=== PATIENT | male | born 1980 | race Caucasian/White ===

== ENCOUNTER → 2016-10-06 | Day surgery (SDC) | payer MEDICAID ==
[~2016-10-06] MED LIST: AUGM875T PO; BUPIVACAINE/EPINEPHRINE 0.25% PF 10 ML VIAL ONE; CYCL-36 PO; DICL75 PO; KETOROLAC TROMETHAMINE 30 MG/ML (IVP) VIAL IV PUSH ONE; LACTATED RINGER'S 1000 ML INJ 1,000 ML ONE; MEPERIDINE HCL 25 MG/ML VIAL ONE; METH4PAK PO; MIDAZOLAM HCL 2 MG/2 ML VIAL ONE; NAPR-576 PO; ONDANSETRON HCL 4 MG/2 ML VIAL IV PUSH ONE; PROPOFOL 100 MG/10 ML INJ IV ONE; ceFAZolin 2 GM PREMIX 50 ML ONE
--- NOTE | 2016-10-06 14:24 | TN ---
cc: KALIN JOSHI M.D. DATE OF SURGERY: 10/06/2016 PREOPERATIVE DIAGNOSIS 1. Symptomatic right inguinal hernia. 2. Possible recurrent left inguinal hernia. POSTOPERATIVE DIAGNOSIS 1. Symptomatic right inguinal hernia. 2. 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 3. Left small direct hernia with mesh plug appearing to be in the internal ring. PROCEDURE PERFORMED Laparoscopic bilateral inguinal hernia repair with mesh. SURGEON Kalin Joshi [employer] Raul Almazan, MS III ANESTHESIA General LMA. COMPLICATIONS None. INDICATION FOR PROCEDURE Mr. Castillo is a pleasant 35-year-old gentleman who was referred for a symptomatic left inguinal hernia. His history is significant for having a right inguinal hernia last year which was repaired with a mesh plug by Dr. Garner at [facility]. At that time he has also noted to have a small right inguinal hernia and Dr. Garner offered him elective repair at a later date. The patient was seen and evaluated in the office. He was having bilateral inguinal pain, worse on the right. He was concerned he might have another hernia back on the left side. I offered him laparoscopic exploration of both sides, possible removal of the mesh plug if it was easily accessible, and he was agreeable. DETAILS OF PROCEDURE The patient was identified, brought to the operating room and placed supine on the operating table. After adequate general anesthesia was achieved with an LMA, the anterior abdomen and groin were prepped and draped in standard surgical fashion. The infraumbilical space was anesthetized with 0.25% Marcaine. The infraumbilical incision was made. Dissection was carried down through subcutaneous tissue to the anterior rectus fascia. The anterior rectus fascia was then incised vertically off the midline.. the rectus muscle was then retracted laterally and the preperitoneal space was entered with blunt finger dissection. A blunt dissecting balloon was inserted and the preperitoneal space was inflated with 30 pumps of air under direct vision using a 0-degree laparoscope. Next, two 5 mm trocars were placed in the lower midline under direct vision. Attention was first directed the right side where Khai's ligament and pubic tubercle were identified. Dissection proceeded out laterally. The cord structures were identified. There was a peritoneal sac with the cord structures, but it did not cross the internal ring. It was dissected back off the cord structures several centimeters. The cord structures were then carefully dissected and a large cord lipoma was noted traveling with them in the inguinal canal. It was dissected out of the inguinal canal and brought back into the preperitoneal space. When we visualized the medial space the inguinal floor appeared to be weak with a bulge above the pubis. This side was photographed. Attention was now directed to mesh repair. A piece of polypropylene mesh was inserted with a slit cut for the cord structures through a posterior window behind the cord. The slit was then wrapped around the cord and it was re-approximated using the tacking device. The internal ring was appropriately tightened. The mesh was secured medially at Khai's ligament and pubic tubercle and superior along the posterior abdominal wall fascia. An onlay mesh was then placed over the first mesh in order to cover the slit and this mesh was secured medially and laterally. With this the indirect and direct spaces were well-covered by mesh. The cord lipoma was reduced and found to be superior to the mesh. Attention was now directed to the left side. On the left side a similar dissection technique was used. We again identified a peritoneal sac traveling with the cord structures but not through the internal ring. It was dissected off. The mesh plug was identified and was found to be densely adherent to the cord structures in the internal ring. We could not dissected it free and I did not want to compromise the cord structures trying to dissect it free and remove it. We therefore left it in place. Attention was then directed medially and again the patient was noted to have a moderate bulge of the inguinal floor indicating likely early direct inguinal hernia. This was photographed. A posterior window was then made behind the cord structures. A piece of polypropylene mesh was inserted with a slit cut for the cord structures through the posterior window. The slit was re-approximated tightening the internal ring with a tacking device. The mesh was then secured medially at Khai's ligament and pubic tubercle and superiorly along the posterior abdominal wall fascia. Onlay mesh was then placed over the first mesh to cover over the slit and it was secured medially and laterally. With this the indirect and direct spaces were well-covered by mesh. The mesh was photographed in place. 0.25% Marcaine was injected to both sides. The inferior border of the mesh was then held down. The peritoneum was allowed to roll up over the mesh as the preperitoneal space was desufflated. All trocars were removed under direct vision. The anterior rectus fascia was repaired with 0 Vicryl in a [id number] fashion. Skin was closed with 4-0 Vicryl. The patient tolerated the procedure well, was awakened and brought to Recovery in stable condition. MD KEVYN Marti/SERGIO /2:08 PM /2:16 PM
== END | disposition home or self-care (01) ==
LOC: ESDC 10:50
PROVIDERS: ATTEND Surgery Trauma Surgery
DX: K40.90 Unilateral inguinal hernia, without obstruction or gangrene, not specified as recurrent (principal); K40.91 Unilateral inguinal hernia, without obstruction or gangrene, recurrent; D17.6 Benign lipomatous neoplasm of spermatic cord
CPT/HCPCS: 00840; 49650; 49651; C1727; C1781; J0690; J1885; J2175; J2250; J2405; J3010; J7120